=== PATIENT | male | born 1965 | race Caucasian/White ===

== ENCOUNTER 2017-04-25 16:31 | Emergency (ER) | payer OTHER ==
[~2017-04-25] VITALS: Ht 170.2 cm; Wt 107.0 kg
[~2017-04-25 16:31] MED LIST: ATOR10TA PO; BUPR100T PO; DIVA250T PO; Z.0.NO CURRENT MEDS; incentive spirometer
[2017-04-25 16:40] VITALS: BP 136/72; PULSE 76; RESP 18; TEMP 97.7; O2SAT 96
[2017-04-25] MEDS ORDERED: SODIUM CHLOR 0.9% 1000 ML INJ 1,000 ML IV SCH (16:51)
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
[2017-04-25] MEDS ORDERED: ALPR.5 PO (16:58)
[2017-04-25] MEDS ORDERED: LAMO25 PO (16:58)
[2017-04-25] MEDS ORDERED: LACO50 PO (16:58)
[2017-04-25] MEDS ORDERED: ATOR10TA15 PO (16:58)
[2017-04-25] MEDS ORDERED: ONDANSETRON HCL 4 MG/2 ML VIAL IV PUSH ONE (17:00)
[2017-04-25] MEDS ORDERED: LORazepam 2 MG/ML VIAL IVS ONE (17:00)
[2017-04-25 17:10] VITALS: BP 136/74; PULSE 70; RESP 15; O2SAT 97
[2017-04-25] MEDS ORDERED: MORPHINE SULFATE 4 MG/ML INJ IV PUSH ONE (17:45)
--- NOTE | 2017-04-25 17:45 | RADRPT ---
EXAM DATE/TIME: 04/25/2017 17:12 [place] COMPARISON: No previous studies available for comparison. INDICATIONS : Patient had seizure, complains of severe headache. RADIATION DOSE: 43.18 CTDIvol (mGy) MEDICAL HISTORY : Seizures. SURGICAL HISTORY : Brain surgery, plate in skull ENCOUNTER: Initial ACUITY: 1 day PAIN SCALE: 7/10 LOCATION: Bilateral cranial TECHNIQUE: Multiple contiguous axial images were obtained of the head. Using automated exposure control and adj ustment of the mA and/or kV according to patient size, radiation dose was kept as low as reasonably a chievable to obtain optimal diagnostic quality images. DICOM format image data is available electro nically for review and comparison. FINDINGS: CEREBRUM: There is an area of a encephalomalacia involving the right frontal lobe. The ventricles are normal fo r age. No evidence of midline shift, mass lesion, hemorrhage or acute infarction. No extra-axial fl uid collections are seen. POSTERIOR FOSSA: The cerebellum and brainstem are intact. The 4th ventricle is midline. The cerebellopontine angle i s unremarkable. EXTRACRANIAL: The visualized portion of the orbits is intact. SKULL: Prior right frontal craniectomy with graft. No evidence of skull fracture. CONCLUSION: 1. No acute intracranial abnormality. 2. Encephalomalacia involving the right frontal lobe. David Lai Jr., MD on April 25, 2017 at 17:30 Board Certified Radiologist. This report was verified electronically.
[2017-04-25] MEDS ORDERED: KETOROLAC TROMETHAMINE 30 MG/ML (IVP) VIAL IV PUSH ONE (18:00)
[2017-04-25 18:05] LABS: AUTOMATED NEUTROPHIL # 7.3 TH/MM3 (1.8-7.7); BASOPHIL # 0.1 TH/MM3 (0-0.2); BASOPHIL % 0.4 % (0.0-2.0); EOSINOPHIL # 0.4 TH/MM3 (0-0.4); EOSINOPHIL % 3.1 % (0.0-4.0); HEMATOCRIT 40.4 % (39.0-51.0); HEMO FLAGS DIFF FINAL; LYMPH % 31.3 % (9.0-44.0); MEAN CELL VOLUME 94.5 FL (80.0-100.0); MEAN CORPUSCULAR HGB CONC 34.9 % (32.0-36.0); MONO % 8.2 % (0.0-8.0); PLATELET COUNT 267 TH/MM3 (150-450); RED BLOOD COUNT 4.28 MIL/MM3 (4.50-5.90); RED CELL DISTRIBUTION WIDTH 14.2 % (11.6-17.2); WHITE BLOOD COUNT 12.7 TH/MM3 (4.0-11.0)
[2017-04-25 18:10] VITALS: BP 143/81; PULSE 67; RESP 15; O2SAT 97
[2017-04-25 18:29] LABS: BICARBONATE 25.4 MEQ/L (21.0-32.0)
[2017-04-25 18:32] LABS: POTASSIUM 3.8 MEQ/L (3.5-5.1)
--- NOTE | 2017-04-26 19:11 | EKG ---
Date Performed: 04/25/2017 Time Performed: 16:45:01 PTAGE: 51 years EKG: Sinus rhythm NONSPECIFIC T-WAVE ABNORMALITY Since previous tracing, no significant change noted BORDERLINE ECG PREVIOUS TRACING : 11/26/2005 12.02 DOCTOR: Roby Blair Interpretating Date/Time 04/26/2017 19:09:25
== END 2017-04-25 19:53 | disposition home or self-care (01) ==
LOC: NEPE 16:31
DX: R56.9 Unspecified convulsions (principal); R11.0 Nausea; R51 Headache; R42 Dizziness and giddiness; R94.31 Abnormal electrocardiogram [ECG] [EKG]; Z88.8 Allergy status to other drugs, medicaments and biological substances; Z79.899 Other long term (current) drug therapy; Z86.73 Personal history of transient ischemic attack (TIA), and cerebral infarction without residual deficits; Z87.820 Personal history of traumatic brain injury
CPT/HCPCS: 70450; 80048; 85025; 93005; 96374; 96375; 99285; J1885; J2060; J2270; J2405; J7030